=== PATIENT | female | born 1935 | race Hispanic/Latino ===

== ENCOUNTER 2017-11-22 06:27 | Day surgery (SDC) | payer MEDICARE ==
[~2017-11-22 06:27] MED LIST: TETRACAINE 0.5% OD PRN
[2017-11-22] MEDS ORDERED: NACL BACTERIOSTATIC INFILTRATI ONE (07:30)
[2017-11-22] MEDS: MYDRIACYL OD SCH ×3 (07:40→07:50)
[2017-11-22] MEDS: VIGAMOX OD SCH ×3 (07:40→07:50)
[2017-11-22] MEDS: AK-Dilate OD SCH ×3 (07:40→07:50)
[2017-11-22] MEDS ORDERED: SUBLIMAZE ONE (08:15)
[2017-11-22] MEDS ORDERED: VERSED ONE (08:15)
--- NOTE | 2017-11-22 09:03 | Operative Report ---
Operative Report Operative Report: PATIENT'S NAME: DATE OF : DATE OF SURGERY: 11/22/2017 PREOPERATIVE DIAGNOSIS: Cataract right eye POSTOPERATIVE DIAGNOSIS: Same OPERATIVE PROCEDURE: Phacoemulsification with intraocular lens implantation, right eye SURGEON: Florecita Lee M.D. AUXILIARY PLANT OPERATOR SURGEON: Angelita Lens: [id number] 19.5 D ANESTHESIA: Monitored anesthesia care in combination with topical and intracameral anesthesia because of the established specific risk of reflux, arrhythmias, or anxiety attacks associated with ocular manipulation, as well as the difficulty of the poultry dressing worker to manage such potentially catastrophic events while simultaneously attempting to complete the surgical procedure and was deemed necessary for the patient's safety to have an Crop Setting Out Machine Operator present during the procedure whenever possible. An Crop Setting Out Machine Operator was utilized to regulate the intravenous sedation of the patient so the patient was cooperative yet not asleep in order for the patient to successfully maintain fixation of the eye on the operating light of the microscope. COMPLICATIONS: No surgical complications No blood loss. ALLERGIES: Codeine PROGNOSIS: Excellent INDICATIONS FOR SURGERY: The patient is undergoing surgery in the hopes of eliminating or improving these visual difficulties. PROCEDURE: After arriving at the surgery center, the patient was given topical anesthetic and dilating drops, as noted in the record. The patient was then taken into the operating room and given more anesthetic drops. The eyelids , lashes, and lid margins were scrubbed with Betadine solution, and the patient was draped. The Nurse Crop Setting Out Machine Operator administered IV sedation and monitored the patient during the procedure. The eye was then fixated with a 0.12, and a stab incision was made in the peripheral clear cornea into the anterior chamber. This was made on my left side. Viscoelastic was next used to fill the anterior chamber. The eye was once again fixated with the 0.12 forceps and a keratome was used make an incision in clear cornea peripherally on my right hand side temporally. The capsule forceps were used to open the central anterior capsule and then make a continuous round capsulotomy. Hydrodissection was carried out utilizing a cannula and balanced salt solution to delineate the cortical material from the capsule and the nucleus from the cortical material. The phaco tip was introduced into the eye and used to remove the anterior cortical material in the area of the capsulotomy. Then the phaco tip was buried into the nucleus, and a chopping instrument was introduced into the eye and used to provide countertraction in the nucleus between this instrument and the phaco tip fracturing the nucleus. This procedure was repeated multiple times, providing multiple small segments of the lens, and then the phaco tip was used to remove each of these segments. An I/A tip was then used to remove the remaining cortex. The anterior chamber was refilled with viscoelastic. An one-piece, acrylic intraocular lens was then placed into an inserting cartridge. The tip of the inserting cartridge was introduced into the keratome incision and into the anterior chamber. The implant was gently advanced through the cartridge and into the eye, where it unfolded, and both haptics were placed in the capsular bag, where it centered nicely and appeared to be well fixated. After placement of the intraocular lens, the I~and~A handpiece was placed back into the eye and used to remove the viscoelastic, including viscoelastic that was behind the optic of the intraocular lens. The anterior chamber was then filled with balanced salt solution, and hydration of the wound was used to cause swelling of the wound and more appropriate watertight closure. When the wound was found to be firm, the patient was asked to comment on how bright the light was. If there was no light perception at all or if the light was substantially dimmer than during the rest of the surgery, the amount of fluid in the eye was decompressed to lower the intraocular pressure until the patient could see the bright light again. This was done to avoid any damage or decreased blood flow to the optic nerve. MEDICATIONS APPLIED AT END OF SURGERY: One drop of Pred Forte and Vigamox The patient was given a shield to wear at night and was instructed not to rub or push on the eye. DISCHARGE SUMMARY: The patient was released in stable condition. The patient and those with the patient were given a written sheet of postoperative instructions and counseling on any abnormal laboratory studies. The patient is to see us tomorrow for follow-up in the office and is to call immediately for any difficulties. Florecita Lee M.D. Date
--- NOTE | 2017-11-22 09:04 | Short Stay Summary ---
Short Stay Documentation Date of service: 11/22/17 - History H&P: obtained from office - Allergies and Medications Current Medications: Allergies codeine Allergy (Verified 11/20/17 17:12) n/v Active Medications Moxifloxacin HCl (Vigamox) 1 drops OD Q5MIN [facility] Stop: 11/24/17 06:01 Last Admin: 11/22/17 07:50 Dose: 1 drops Phenylephrine HCl (Ak-Dilate) 1 drops OD Q5MIN [facility] Stop: 11/24/17 06:01 Last Admin: 11/22/17 07:50 Dose: 1 drops Prednisolone Acetate (Pred Forte 1%) 1 drops OD QID RIN Tetracaine HCl (Tetracaine 0.5%) 1 drops OD Q5M PRN PRN Reason: Analgesia Last Admin: 11/22/17 07:40 Dose: 1 drops Tropicamide (Mydriacyl) 1 drops OD Q5MIN [facility] Stop: 11/24/17 06:01 Last Admin: 11/22/17 07:50 Dose: 1 drops - Brief post op/procedure progress note Date of procedure: 11/22/17 Pre-op diagnosis: right cataract Post-op diagnosis: same Procedure: Phacoemulsification with intraocular lens insertion right eye Anesthesia: MAC Surgeon: XIOMARA WOOD Estimated blood loss: none Pathology: none Condition: stable - Disposition Condition at discharge: Good Disposition: [id number] HOME [facility] - Discharge Diagnoses (1) Cataract Status: Acute Qualifiers: Cataract type: age-related Age-related cataract type: nuclear Laterality : right Qualified Code(s): H25.11 - Age-related nuclear cataract, right eye Short Stay Discharge Plan Follow up with: NUNO DEAL MD [Primary Care Provider] - 7 Days
[2017-11-22 09:24] VITALS: BP 142/87
--- NOTE | 2017-11-22 09:35 | Anesthesia Consultation ---
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
--- NOTE | 2017-11-22 09:36 | Post Anesthesia Evaluation ---
- Post Anesthesia Evaluation Patient Participated: Yes Airway Patent: Yes Stable Respiratory Function: Yes Nausea/Vomiting: No Temp > 96.8F: Yes Pain Manageable: Yes Adequeate Hydration: Yes Anesthesia Complications: No Block Receding Appropriately: Not Applicable
[2017-11-22] MEDS ORDERED: PRED FORTE 1% OD SCH (10:00)
--- NOTE | 2017-11-22 11:18 | Post Anesthesia Evaluation ---
- Post Anesthesia Evaluation Patient Participated: Yes Airway Patent: Yes Stable Respiratory Function: Yes Nausea/Vomiting: No Temp > 96.8F: Yes Pain Manageable: Yes Adequeate Hydration: Yes Anesthesia Complications: No
== END 2017-11-22 10:18 | disposition home health service (06) ==
LOC: OR 06:27
DX: H26.9 Unspecified cataract (principal); I10 Essential (primary) hypertension; I48.91 Unspecified atrial fibrillation; I63.9 Cerebral infarction, unspecified; Z88.8 Allergy status to other drugs, medicaments and biological substances
CPT/HCPCS: 66984; J2250; J3010; V2632

== ENCOUNTER 2017-12-06 06:19 | Day surgery (SDC) | payer MEDICARE ==
[~2017-12-06 06:19] MED LIST changes: -TETRACAINE 0.5% OD PRN; +TETRACAINE 0.5% OS PRN
--- NOTE | 2017-12-06 07:17 | Anesthesia Consultation ---
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 s/p mastectomy) - Additional Comments Anesthesia Medical History Comments: Right eye similar procedure done on 11/22/17 /. Tolerated anesthesia and procedure well. Informed consent obtained
--- NOTE | 2017-12-06 07:17 | Anesthesia Day of Surgery ---
Anesthesia Day of Surgery - Day of Surgery Patient Examined: Yes Patient H&P Reviewed: Yes Patient is NPO: Yes Beta Blockers: Yes
[2017-12-06] MEDS: MYDRIACYL OS SCH ×3 (07:20→07:30)
[2017-12-06] MEDS: AK-Dilate OS SCH ×3 (07:20→07:30)
[2017-12-06] MEDS: VIGAMOX OS SCH ×3 (07:20→07:30)
[2017-12-06] MEDS ORDERED: LOPRESSOR PO NR (07:30)
[2017-12-06] MEDS ORDERED: SUBLIMAZE ONE (07:36)
[2017-12-06] MEDS ORDERED: VERSED ONE (07:36)
[2017-12-06] MEDS ORDERED: WATER FOR IRRIG STERILE IR ONE (07:45)
[2017-12-06] MEDS ORDERED: ZOFRAN ONE (07:54)
[2017-12-06] MEDS ORDERED: NACL 0.9% 1000 ML 1,000 ML IV SCH (08:00)
[2017-12-06] MEDS ORDERED: XYLOCAINE 1% MPF 5 mL IJ ONE (08:10)
--- NOTE | 2017-12-06 08:46 | Operative Report ---
Operative Report Operative Report: PATIENT'S NAME: DATE OF : DATE OF SURGERY: 12/06/2017 PREOPERATIVE DIAGNOSIS: Cataract left eye POSTOPERATIVE DIAGNOSIS: Same OPERATIVE PROCEDURE: Phacoemulsification with intraocular lens implantation, left eye SURGEON: Florecita Lee M.D. FOURTH HAND SURGEON: Angelita Lens: [id number] 19.5 D ANESTHESIA: Monitored anesthesia care in combination with topical and intracameral anesthesia because of the established specific risk of reflux, arrhythmias, or anxiety attacks associated with ocular manipulation, as well as the difficulty of the land sales agent to manage such potentially catastrophic events while simultaneously attempting to complete the surgical procedure and was deemed necessary for the patient's safety to have an Home Staging Specialist present during the procedure whenever possible. An Home Staging Specialist was utilized to regulate the intravenous sedation of the patient so the patient was cooperative yet not asleep in order for the patient to successfully maintain fixation of the eye on the operating light of the microscope. COMPLICATIONS: No surgical complications No blood loss. ALLERGIES: Codeine PROGNOSIS: Excellent INDICATIONS FOR SURGERY: The patient is undergoing surgery in the hopes of eliminating or improving these visual difficulties. PROCEDURE: After arriving at the surgery center, the patient was given topical anesthetic and dilating drops, as noted in the record. The patient was then taken into the operating room and given more anesthetic drops. The eyelids , lashes, and lid margins were scrubbed with Betadine solution, and the patient was draped. The Nurse Home Staging Specialist administered IV sedation and monitored the patient during the procedure. The eye was then fixated with a 0.12, and a stab incision was made in the peripheral clear cornea into the anterior chamber. This was made on my left side. Viscoelastic was next used to fill the anterior chamber. The eye was once again fixated with the 0.12 forceps and a keratome was used make an incision in clear cornea peripherally on my right hand side temporally. The capsule forceps were used to open the central anterior capsule and then make a continuous round capsulotomy. Hydrodissection was carried out utilizing a cannula and balanced salt solution to delineate the cortical material from the capsule and the nucleus from the cortical material. The phaco tip was introduced into the eye and used to remove the anterior cortical material in the area of the capsulotomy. Then the phaco tip was buried into the nucleus, and a chopping instrument was introduced into the eye and used to provide countertraction in the nucleus between this instrument and the phaco tip fracturing the nucleus. This procedure was repeated multiple times, providing multiple small segments of the lens, and then the phaco tip was used to remove each of these segments. An I/A tip was then used to remove the remaining cortex. The anterior chamber was refilled with viscoelastic. An one-piece, acrylic intraocular lens was then placed into an inserting cartridge. The tip of the inserting cartridge was introduced into the keratome incision and into the anterior chamber. The implant was gently advanced through the cartridge and into the eye, where it unfolded, and both haptics were placed in the capsular bag, where it centered nicely and appeared to be well fixated. After placement of the intraocular lens, the I~and~A handpiece was placed back into the eye and used to remove the viscoelastic, including viscoelastic that was behind the optic of the intraocular lens. The anterior chamber was then filled with balanced salt solution, and hydration of the wound was used to cause swelling of the wound and more appropriate watertight closure. When the wound was found to be firm, the patient was asked to comment on how bright the light was. If there was no light perception at all or if the light was substantially dimmer than during the rest of the surgery, the amount of fluid in the eye was decompressed to lower the intraocular pressure until the patient could see the bright light again. This was done to avoid any damage or decreased blood flow to the optic nerve. MEDICATIONS APPLIED AT END OF SURGERY: One drop of Pred Forte and Vigamox The patient was given a shield to wear at night and was instructed not to rub or push on the eye. DISCHARGE SUMMARY: The patient was released in stable condition. The patient and those with the patient were given a written sheet of postoperative instructions and counseling on any abnormal laboratory studies. The patient is to see us tomorrow for follow-up in the office and is to call immediately for any difficulties. Florecita Lee M.D. Date
--- NOTE | 2017-12-06 08:47 | Short Stay Summary ---
Short Stay Documentation Date of service: 12/06/17 - History H&P: obtained from office - Allergies and Medications Current Medications: Allergies codeine Allergy (Verified 11/20/17 17:12) n/v Home Medications Medication Instructions Recorded Confirmed Last Taken Type Atorvastatin Calcium [Lipitor] 10 mg PO HS 11/22/17 11/22/17 11/21/17 History Baclofen 10 mg PO TID 11/22/17 11/22/17 11/21/17 History FLUoxetine [PROzac] 20 mg PO QDAY 11/22/17 11/22/17 11/21/17 History Famotidine [Pepcid] 20 mg PO HS 11/22/17 11/22/17 11/21/17 History Metoprolol [Lopressor] 25 mg PO BID 11/22/17 11/22/17 11/21/17 History Multivit,Calc,Mins/Iron/Folic 1 each PO DAILY 11/22/17 11/22/17 11/21/17 History [Thera-M Caplet] Active Medications Sodium Chloride (Nacl 0.9% 1000 Ml) 1,000 mls @ 75 mls/hr IV DIRECT RIN Moxifloxacin HCl (Vigamox) 1 drops OS Q5MIN [facility] Stop: 12/08/17 06:01 Last Admin: 12/06/17 07:30 Dose: 1 drops Phenylephrine HCl (Ak-Dilate) 1 drops OS Q5MIN [facility] Stop: 12/08/17 06:01 Last Admin: 12/06/17 07:30 Dose: 1 drops Prednisolone Acetate (Pred Forte 1%) 1 drops OS QID [facility] Tetracaine HCl (Tetracaine 0.5%) 1 drops OS Q5M PRN PRN Reason: Analgesia Last Admin: 12/06/17 07:17 Dose: 1 drops Tropicamide (Mydriacyl) 1 drops OS Q5MIN [facility] Stop: 12/08/17 06:01 Last Admin: 12/06/17 07:30 Dose: 1 drops - Brief post op/procedure progress note Date of procedure: 12/06/17 Pre-op diagnosis: left cataract Post-op diagnosis: same Procedure: Phacoemulsification with intraocular lens insertion left eye Anesthesia: MAC, local Surgeon: XIOMARA WOOD Estimated blood loss: none Pathology: none Condition: stable - Disposition Condition at discharge: Good Disposition: DC-01 TO HOME OR SELFCARE - Discharge Diagnoses (1) Cataract Status: Resolved Qualifiers: Cataract type: age-related Age-related cataract type: nuclear Laterality : left Qualified Code(s): H25.12 - Age-related nuclear cataract, left eye Short Stay Discharge Plan Additional Instructions: FOLLOW SURGEON INSTRUCTION SHEETS Follow up with: NUNO DEAL MD [Primary Care Provider] - 7 Days Forms: [facility] [place] [facility]
[2017-12-06 09:06] VITALS: BP 160/80
[2017-12-06] MEDS ORDERED: PRED FORTE 1% OS SCH (10:00)
== END 2017-12-06 09:30 | disposition home or self-care (01) ==
LOC: OR 06:19
DX: H26.9 Unspecified cataract (principal); M19.90 Unspecified osteoarthritis, unspecified site; I10 Essential (primary) hypertension; I69.954 Hemiplegia and hemiparesis following unspecified cerebrovascular disease affecting left non-dominant side; Z88.5 Allergy status to narcotic agent; Z79.899 Other long term (current) drug therapy
CPT/HCPCS: 66984; J2250; J2405; J3010; V2632